=== PATIENT | male | born 1960 | race Caucasian/White ===

== ENCOUNTER 2017-03-02 13:25 | Emergency (ER) | payer MEDICAID ==
[~2017-03-02] VITALS: Ht 175.3 cm; Wt 95.6 kg
[2017-03-02 13:27] VITALS: BP 159/98
[2017-03-02] MEDS ORDERED: METHOCARBAMOL 750 MG TABLET PO ONE (14:00)
[2017-03-02] MEDS ORDERED: OXYcodone/APAP 5/325MG TABLET PO ONE (14:00)
[2017-03-02] MEDS ORDERED: OXYcodone/APAP 5/325MG TABLET ONE (14:13)
[2017-03-02] MEDS ORDERED: METHOCARBAMOL 750 MG TABLET ONE (14:14)
[2017-03-02] MEDS ORDERED: KETOROLAC 30 MG/1 ML ONE (14:19)
[2017-03-02] MEDS ORDERED: KETOROLAC 30 MG/1 ML IM ONE (14:30)
== END 2017-03-02 14:40 | disposition home or self-care (01) ==
LOC: ED 13:58
DX: M54.41 Lumbago with sciatica, right side (principal); Z76.0 Encounter for issue of repeat prescription; M54.5 Low back pain; G89.29 Other chronic pain
CPT/HCPCS: 96372; 99283; J1885; J7512

== ENCOUNTER 2017-03-22 13:37 | Emergency (ER) | payer MEDICAID ==
[~2017-03-22] VITALS: Ht 175.3 cm; Wt 92.0 kg
[2017-03-22 13:40] VITALS: BP 165/113
[2017-03-22 14:15] LABS: HEMATOCRIT 43.1 % (39.2-51.8); HEMOGLOBIN 14.3 g/dL (13.7-18.0); WHITE BLOOD COUNT 6.2 x10^3/uL (3.4-10)
[2017-03-22 14:27] LABS: BLOOD UREA NITROGEN 20 mg/dL (7-18)
[2017-03-22] MEDS ORDERED: LISI1TAB3 PO (14:49)
[2017-03-22] MEDS ORDERED: AMLO10TA2 PO (14:49)
[2017-03-22] MEDS ORDERED: HYDROmorphone 1 MG/ML, 1ML IM ONE (15:00)
[2017-03-22] MEDS ORDERED: HYDROmorphone 1 MG/ML, 1ML ONE (15:31)
== END 2017-03-22 16:41 | disposition home or self-care (01) ==
LOC: ED 14:37
DX: M54.5 Low back pain (principal); M19.90 Unspecified osteoarthritis, unspecified site; M51.16 Intervertebral disc disorders with radiculopathy, lumbar region; I10 Essential (primary) hypertension
CPT/HCPCS: 36415; 72110; 80048; 81003; 82040; 85025; 99285

== ENCOUNTER 2017-03-28 11:18 | Emergency (ER) | payer MEDICAID ==
[~2017-03-28] VITALS: Ht 175.3 cm; Wt 92.2 kg
[~2017-03-28 11:18] MED LIST: AMLO10TA2 PO; LISI1TAB3 PO
[2017-03-28] MEDS ORDERED: HYDROmorphone 1 MG/ML, 1ML ONE (11:47)
[2017-03-28] MEDS ORDERED: DIAZEPAM 5 MG TABLET ONE (11:47)
[2017-03-28] MEDS ORDERED: KETOROLAC 30 MG/1 ML ONE (11:48)
[2017-03-28] MEDS ORDERED: KETOROLAC 30 MG/1 ML IM ONE (12:00)
[2017-03-28] MEDS ORDERED: HYDROmorphone 1 MG/ML, 1ML IM ONE (12:00)
[2017-03-28] MEDS ORDERED: DIAZEPAM 5 MG TABLET PO ONE (12:00)
[2017-03-28 12:50] VITALS: BP 131/78
== END 2017-03-28 13:26 | disposition home or self-care (01) ==
LOC: ED 12:01
DX: S39.012A Strain of muscle, fascia and tendon of lower back, initial encounter (principal); I10 Essential (primary) hypertension; X58.XXXA Exposure to other specified factors, initial encounter; Y93.89 Activity, other specified; Y92.89 Other specified places as the place of occurrence of the external cause; Y99.8 Other external cause status
CPT/HCPCS: 96372; 99284; J1170; J1885

== ENCOUNTER 2017-04-06 11:15 | Emergency (ER) | payer MEDICAID ==
[~2017-04-06] VITALS: Ht 175.3 cm; Wt 87.9 kg
[2017-04-06 11:21] VITALS: BP 155/95
== END 2017-04-06 13:02 | disposition left against medical advice (07) ==
LOC: ED 12:55
DX: Z53.21 Procedure and treatment not carried out due to patient leaving prior to being seen by health care provider (principal)
CPT/HCPCS: 93005

== ENCOUNTER 2017-04-13 08:41 | Emergency (ER) | payer MEDICAID ==
[~2017-04-13] VITALS: Ht 175.3 cm; Wt 88.9 kg
[2017-04-13] MEDS ORDERED: LISINOPRIL 20 MG TABLET ONE (09:31)
[2017-04-13] MEDS ORDERED: ASPIRIN 81 MG TABLET CHEW ONE (09:32)
[2017-04-13 09:40] LABS: HEMATOCRIT 43.6 % (39.2-51.8); HEMOGLOBIN 14.4 g/dL (13.7-18.0); WHITE BLOOD COUNT 7.3 x10^3/uL (3.4-10)
[2017-04-13 09:47] LABS: BLOOD UREA NITROGEN 15 mg/dL (7-18)
[2017-04-13 09:54] LABS: IS PT STATUS REG ER OR PRE ER? YES
[2017-04-13] MEDS ORDERED: LISINOPRIL 20 MG TABLET PO ONE (10:00)
[2017-04-13] MEDS ORDERED: ASPIRIN 81 MG TABLET CHEW PO ONE (10:00)
[2017-04-13 10:28] VITALS: BP 161/89
== END 2017-04-13 10:41 | disposition home or self-care (01) ==
LOC: ED 10:32
DX: M54.16 Radiculopathy, lumbar region (principal); G89.29 Other chronic pain; I10 Essential (primary) hypertension
CPT/HCPCS: 36415; 71010; 80048; 82040; 83880; 84484; 85025; 93005; 99285

== ENCOUNTER 2017-04-30 09:17 | Emergency (ER) | payer MEDICAID ==
[~2017-04-30] VITALS: Ht 175.3 cm; Wt 88.0 kg
[2017-04-30] MEDS ORDERED: FAMOTIDINE 20 MG/2 ML IVP ONE (10:30)
[2017-04-30] MEDS ORDERED: SODIUM CHLORIDE 0.9% 1,000ML IVBOLUS ONE (10:30)
[2017-04-30] MEDS ORDERED: DICYCLOMINE 10 MG/ML, 2ML IM ONE (10:30)
[2017-04-30] MEDS ORDERED: SODIUM CHLORIDE FLUSH 10ML SYR IVF ONE (10:30)
[2017-04-30] MEDS ORDERED: ONDANSETRON 2MG/ML, 2ML IVPush ONE (10:30)
[2017-04-30 10:47] LABS: ASPARTATE AMINO TRANSFERASE 29 U/L (15-37); BLOOD UREA NITROGEN 10 mg/dL (7-18)
[2017-04-30 10:51] LABS: HEMATOCRIT 43.2 % (39.2-51.8); HEMOGLOBIN 14.4 g/dL (13.7-18.0); WHITE BLOOD COUNT 8.7 x10^3/uL (3.4-10)
[2017-04-30] MEDS ORDERED: ONDANSETRON 2MG/ML, 2ML ONE (10:59)
[2017-04-30] MEDS ORDERED: FAMOTIDINE 20 MG/2 ML ONE (10:59)
[2017-04-30 14:20] VITALS: BP 138/77
== END 2017-04-30 14:22 | disposition home or self-care (01) ==
LOC: ED 10:28
DX: K52.89 Other specified noninfective gastroenteritis and colitis (principal); I10 Essential (primary) hypertension; M19.90 Unspecified osteoarthritis, unspecified site
CPT/HCPCS: 36415; 80053; 83690; 85025; 96361; 96372; 96374; 96375; 99285; J0500; J2405; J7030; S0028

== ENCOUNTER 2021-01-08 10:11 | Emergency (ER) | payer MEDICAID ==
[~2021-01-08] VITALS: Ht 175.3 cm; Wt 96.4 kg
[~2021-01-08 10:11] MED LIST changes: +AMLO-150 PO; +AMLO-211 PO; -AMLO10TA2 PO; +ATOR-2 PO; +GABA600T7 PO; +LISI1TAB20 PO; +LISI1TAB23 PO; -LISI1TAB3 PO; +LOSA50TA14 PO; +METO-99 PO; +ONDA4TAB13 PO; +OXYC5TAB98 PO; +PANT40TA6 PO; +SUCR1TAB PO; +SUCR1TAB33 PO
[2021-01-08 10:13] VITALS: BP 155/90
--- NOTE | 2021-01-08 10:53 | NUR ---
ERMD SAHM AT BEDSIDE FOR EVAL
[2021-01-08] MEDS ORDERED: MAALOX/HYOSCYAMINE/LIDOCAINE 45 ML BTL PO ONE (11:00)
[2021-01-08] MEDS ORDERED: MAALOX/HYOSCYAMINE/LIDOCAINE 45 ML BTL ONE (11:05)
[2021-01-08 11:07] LABS: BASOPHILS % (AUTO) 0 % (0-1); EOSINOPHILS % (AUTO) 7 % (1-7); LYMPHOCYTES % (AUTO) 31 % (22-44); MEAN CORPUSCULAR HEMOGLOBIN 28.8 pg (27.5-34.5); MEAN CORPUSCULAR HGB CONC 33.2 g/dL (33.2-36.2); MEAN PLATELET VOLUME 7.6 fL (7.4-10.4); MONOCYTES % (AUTO) 17 % (2-9); NEUTROPHILS % (AUTO) 44 % (42-75); PLATELET COUNT 283 x10^3/uL (130-400); RED BLOOD COUNT 4.21 x10^6/uL (4.38-5.82); RED CELL DISTRIBUTION WIDTH 15.5 % (9.4-14.8)
[2021-01-08 11:15] LABS: MD NO
[2021-01-08 11:19] LABS: ALANINE AMINOTRANSFERASE 29 U/L (12-78); ALBUMIN 3.6 g/dL (3.4-5.0); ANION GAP 7 mmol/L (5-15); CALCIUM 8.5 mg/dL (8.5-10.1); CHLORIDE 107 mmol/L (98-107); CREATININE 1.02 mg/dL (0.7-1.3)
[2021-01-08 11:21] LABS: ALKALINE PHOSPHATASE 89 U/L (45-117); BILIRUBIN,TOTAL 0.9 mg/dL (0.2-1.0); TOTAL PROTEIN 6.8 g/dL (6.4-8.2)
--- NOTE | 2021-01-08 12:03 | NUR ---
PT RESTING IN BED, CALL LIGHT IN REACH.
--- NOTE | 2021-01-08 12:39 | NUR ---
DISCHARGE INSTRUCTIONS REVIEWED
== END 2021-01-08 12:41 | disposition home or self-care (01) ==
LOC: ED 10:29
DX: K29.00 Acute gastritis without bleeding (principal); R11.10 Vomiting, unspecified; M19.90 Unspecified osteoarthritis, unspecified site
CPT/HCPCS: 36415; 80053; 83690; 85025; 93005; 99284

== ENCOUNTER 2021-01-18 19:28 | Emergency (ER) | payer MEDICAID ==
[~2021-01-18] VITALS: Ht 175.3 cm; Wt 97.4 kg
[2021-01-18 19:57] LABS: BASOPHILS % (AUTO) 1 % (0-1); EOSINOPHILS % (AUTO) 8 % (1-7); LYMPHOCYTES % (AUTO) 28 % (22-44); MEAN CORPUSCULAR HEMOGLOBIN 28.9 pg (27.5-34.5); MEAN CORPUSCULAR HGB CONC 33.8 g/dL (33.2-36.2); MEAN PLATELET VOLUME 7.5 fL (7.4-10.4); MONOCYTES % (AUTO) 15 % (2-9); NEUTROPHILS % (AUTO) 49 % (42-75); PLATELET COUNT 294 x10^3/uL (130-400); RED BLOOD COUNT 4.14 x10^6/uL (4.38-5.82); RED CELL DISTRIBUTION WIDTH 15.8 % (9.4-14.8)
[2021-01-18] MEDS ORDERED: SODIUM CHLORIDE FLUSH 10ML SYR IVF ONE (20:00)
[2021-01-18 20:08] LABS: ALANINE AMINOTRANSFERASE 36 U/L (12-78); ALBUMIN 3.5 g/dL (3.4-5.0); ANION GAP 6 mmol/L (5-15); CALCIUM 8.6 mg/dL (8.5-10.1); CHLORIDE 108 mmol/L (98-107); CREATININE 1.14 mg/dL (0.7-1.3)
[2021-01-18 20:12] LABS: ALKALINE PHOSPHATASE 89 U/L (45-117); BILIRUBIN,TOTAL 0.7 mg/dL (0.2-1.0); TOTAL PROTEIN 7.1 g/dL (6.4-8.2); TROPONIN I < 0.015 ng/mL (0.000-0.045)
[2021-01-18] MEDS ORDERED: MORPHINE SULFATE 4 MG/ML, 1ML ONE (22:38)
[2021-01-18] MEDS ORDERED: ONDANSETRON 2MG/ML, 2ML ONE (22:38)
[2021-01-18 22:52] LABS: MICROSCOPIC NOT IND
[2021-01-18] MEDS ORDERED: MORPHINE SULFATE 4 MG/ML, 1ML IVPush PRN (23:00)
[2021-01-18] MEDS ORDERED: ONDANSETRON 2MG/ML, 2ML IVPush ONE (23:00)
[2021-01-18] MEDS ORDERED: OMNIPAQUE 350 MG/ML, 100ML BOTTLE ONE (23:55)
[2021-01-19 00:55] VITALS: BP 162/88
--- NOTE | 2021-01-19 01:07 | NUR ---
PT REC'VD DISCHARGE INSTRUCTIONS AND EDUCATION. PT HAD NO FURTHER QUESTIONS.
--- NOTE | 2021-01-19 01:23 | NUR ---
PT AMBULATED TO MI AREA, STEADY GAIT.
== END 2021-01-19 01:26 | disposition home or self-care (01) ==
LOC: ED 22:41
DX: R10.31 Right lower quadrant pain (principal); R42 Dizziness and giddiness; R55 Syncope and collapse; R11.2 Nausea with vomiting, unspecified; R94.31 Abnormal electrocardiogram [ECG] [EKG]; M19.90 Unspecified osteoarthritis, unspecified site
CPT/HCPCS: 36415; 71045; 74177; 80053; 81003; 83690; 84484; 85025; 93005; 96374; 96375; 99285; J2270; J2405; Q9967